=== PATIENT | female | born 1970 | race Caucasian/White ===

== ENCOUNTER 2024-11-09 08:17 | Outpatient (CLI) | payer OTHER, SELFPAY ==
--- NOTE | 2024-11-30 17:14 | P.SLEEP_ITS ---
Sleep Study - Home Unattended Date of Study: 11/09/24 Ordering Provider: LINETTE Love Interpreting Provider: Gaye Torres DO Home Sleep Study Type: Watch PAT Height: 1.63 m Weight: 83.007 kg Body Mass Index: 31.4 Neck Circumference (inches): 14.75 Sayre: 14 Reason for Sleep Study Daytime hypersomnia Sleep History The patient is a 54-year-old female that had a sleep study ordered by the pulmonary group for evaluation of sleep apnea. The patient admits to snoring loudly, excessive daytime sleepiness and trouble maintaining sleep. The patient denies interruptions and breathing while asleep. She denies choking or gasping at night. She denies having trouble breathing on her back. She does have morning headaches. She denies having a dry or sore mouth/ throat in the morning. She denies nocturnal heartburn. She denies nocturia. She denies having difficulty falling asleep. She denies having difficulty returning to sleep if she wakes up throughout the night. She denies any hypnotic or sedative use. She denies feeling anxious about sleep. She does feel tired or sleepy during the day. She does feel tired in the morning. She does have the urge to fall asleep during the day. She does feel drowsy while driving. She denies sleep paralysis, cataplexy and hypnagogic / hypnopompic hallucinations. She denies clenching or grinding her teeth. She denies kicking or jerking her legs excessively. She denies having a restless feeling in her legs. She goes to bed at 10:35 p.m. on work days and 11:30 p.m. on her days off. It takes her 15 minutes to fall asleep. She gets 5-1/2 hours of sleep on work days and 6 hours 15 minutes of sleep on her days off. Her sleep is a little more restorative on her days off. She denies taking any planned naps. She denies dream enactment behavior. She denies sleep walking. She consumes 1-2 cups of caffeinated beverage per day. She consumes 1 glass 7 alcoholic beverage 1-2 nights per week. She denies tobacco use. She does not exercise on a regular basis. [facility] Past Medical History Medical History Pituitary tumor Thyroid disorder Hyperlipidemia Surgical History Surgical History H/O hernia repair H/O hemorrhoidectomy History of cholecystectomy H/O parotidectomy April 2022 Family History Family History Daughter Asthma Depression Mother Depression Father Hypertension Other Cerebrovascular accident Social History Social History Smoking status: Never smoker Do You Feel Safe in your Home?: Yes Lack of Transportation: No Lack of Food: Never True Current Housing: I Have Housing Concerned About Future Housing: No Difficulty Paying Gas/Electric Bills: No Difficulty Paying for Meds: No Currently Unemployed: No Education: Bachelor's Degree Difficulty w/ Childcare or Family Care: No Medications Home Medications ?Medication ?Instructions ?Recorded ?Confirmed ?Type ascorbic acid (vitamin C) 500 mg 500 mg PO DAILY 05/09/24 11/14/24 History chewable tablet desmopressin 0.1 mg tablet mg PO TID 05/09/24 11/14/24 History levothyroxine 100 mcg tablet mcg PO DAILY 05/09/24 11/14/24 History multivitamin 1 tablet PO DAILY 05/09/24 11/14/24 History calcium carbonate 600 mg PO DAILY 06/19/24 11/14/24 History fluticasone propionate 50 1 spray intranasal BID PRN 06/19/24 11/14/24 History mcg/actuation nasal spray,suspension losartan 25 mg tablet See Rx Instructions .Route 10/23/24 11/14/24 Rx .COMPLEX #90 tabs atorvastatin 20 mg tablet 20 mg PO QPM #90 tabs 11/14/24 11/14/24 Rx metformin 500 mg tablet,extended 500 mg PO BID 3 months #180 tabs 11/14/24 11/14/24 Rx release 24 hr omega-3 acid ethyl esters 1 gram See Rx Instructions .Route 11/14/24 11/14/24 Rx capsule .COMPLEX #360 caps Sleep Procedure The sleep study was completed using Syn[employer] a technically adequate device with seven channels: peripheral arterial tone, actigraphy, body position, snore, respiratory movement, pulse oximetry, sleep staging, and heart rate. Prior to using the device, the patient received verbal and written instructions for its application and was provided with the help desk phone number for additional telephonic instruction with 24-hour availability of qualified personnel to answer questions. The study was scored using CMS guidelines. Sleep Architecture The total recording time is 6 hrs, 10 min. The total sleep time is 5 hrs, 48 min. Sleep latency is 17 minutes. REM latency is 70 minutes. The patient had 1 episodes of waking. Sleep architecture shows 20.2% deep sleep, 46.3% light sleep, and (as % Total Sleep Time) showed NREM (Light 46.3%; Deep 20.2%), and a 33.4% stage REM. The patient spent 100.0% of total sleep time in the supine position. Sleep efficiency was 94.05. Respiratory Analysis The overall AHI (pAHI 4%:) is 20.3. The central AHI is 0.9. The AHI was 7.2 in NREM and 45.9 in REM sleep. The AHI was 20.3 in Supine and N/A in Non-supine sleep. Percent of Alexander Muñoz respirations is 0.0. Oximetry Data The oxygen desaturation index (ADI 4%:) is 19.1. The mean saturation is 93%, and the lowest saturation is 74%. Time spent with saturation < 88% is 7.6 minutes. Snoring Profile Snoring average intensity is 45 dB. The patient snored above 45 decibels for 148.7 minutes, 42.7% of sleep time. Cardiac Profile The average pulse rate is 61 beats per minutes. The lowest pulse rate is 48 bpm. The highest pulse rate reported is 100 bpm. Atrial fibrillation was not detected. Premature beats occur <0.1 per minute. Assessment and Plan Assessment and Plan (1) HEATHER (obstructive sleep apnea): Code(s): G47.33 - Obstructive sleep apnea (adult) (pediatric) Status: Acute Assessment and Plan: The patient had an overall AHI of 20.3 with desaturation down to 74%. This is consistent with moderate sleep apnea. The patient's REM AHI was 45.9. Due to the severity of her sleep apnea being over two times greater in REM sleep as well as how low she desaturated, she is not an ideal candidate for AutoPAP. I recommend that the patient have a CPAP Titration study with the use of a hypnotic (Lunesta 2-3 mg or Ambien 5-10 mg) to ensure we obtain enough sleep data and find an optimal pressure setting. Data The data obtained during this sleep study is adequate for interpretation. Certification This sleep study has been reviewed by a board certified sleep medicine physician.
[2024-11-30 17:25] VITALS: BMI 31.4
== END 2024-11-10 15:09 | disposition home or self-care (01) ==
LOC: ANHCSM 08:18
PROVIDERS: PCP Pediatrics; Visit Provider Physician Assistant
DX: G47.33 Obstructive sleep apnea (adult) (pediatric) (principal); I10 Essential (primary) hypertension
CPT/HCPCS: 95800

== ENCOUNTER 2025-02-16 08:16 | Outpatient (CLI) | payer OTHER, SELFPAY ==
--- OUTSIDE RECORDS SUMMARY | 2025-02-16 08:28 | XMS_ITS | Clinical Summary ---
Author Organization [facility] [employer] Address [address] [place] [address] Care Team Providers Care Spooling Operator Name Role Phone Robert Downs MD Primary Care Provide r Source Comments [facility],non-owned Affiliates and Associated Physician Practices is amultiple site organization consisting of ambulatory clinics and hospital sitesin [place], [place], [place] and [place]. This disclosure is being madepursuant to the Care Everywhere program and may not contain all information available regarding this patient. Last updated 18.[facility] [employer] Allergies Active Allergy Reactions Criticality Noted Date Comments Neo Inhibitors Cough 02/08/2022 Medications * Be aware that medications may not be up to date on this document. Alwaysverify current medications with the patient. Medication Sig Dispensed Refills Start Date End Date Status Fiber Adult Gummies 2 g CHEW Take 1 capsule by mouth once daily as needed Active calcium citrate-vitamin D (CITRACAL PLUS D) 315-200 MG-UNIT tablet Take 1 (one) tablet by mouth once daily Active [place]-3 Fatty Acids (FISH OIL) 1000 MG capsule Take 1 (one) capsule by mouth once daily Active Multiple Vitamin (MULTI-DAY PO) Active Ascorbic Acid (RENE-C PO) Active desmopressin (DDAVP) 0.1 MG tablet Take 1 (one) tablet by mouth 2 times daily 60 tablet 1 02/15/2022 Active Additional Information Patient taking differently:100 mcg Oral3 TIMES DAILY, Reported on 03/02/2023 acetaminophen (TYLENOL) 325 MG tablet Take 2 (two) tablets by mouth every 6 hours as needed Active Ascorbic Acid 500 MG Take 1 tablet by mouth once daily 04/15/2021 Active Calcium-Vitamin D-Vitamin K (VIACTIV CALCIUM PLUS D) 650-12.5-40 MG-MCG-MCG CHEW Take 1 tablet by mouth once daily 02/21/2021 Active levothyroxine (Synthroid) 100 MCG tablet Take 1 (one) tablet by mouth every morning 01/08/2023 Active atorvastatin (Lipitor) 20 MG tablet Take 1 (one) tablet by mouth once daily 08/18/2022 Active metFORMIN ER 24hr (Glucophage XR) 500 MG tablet Take 1 (one) tablet by mouth once daily 30 tablet 11 05/03/2023 Active fluticasone propionate (Flonase) 50 MCG/ACT nasal spray USE 2 SPRAY(S) IN EACH NOSTRIL ONCE DAILY 12/29/2023 Active levothyroxine (Synthroid) 100 MCG tablet Take 1 (one) tablet by mouth once daily 04/28/2023 Active Active Problems Problem Noted Date Diagnosed Date Red's angina 02/04/2022 Cervical lymphadenopathy 02/02/2022 Malaise 02/02/2022 Pituitary tumor 01/28/2022 Mass of right parotid gland 11/15/2021 Acute post-operative pain Acute postoperative pulmonary insufficiency Essential hypertension Polyuria Diabetes insipidus - [employer] Deficiency Acute blood loss as cause of postoperative anemi a S/P transsphenoidal hypophysectomy Resolved Problems Problem Noted Date Diagnosed Date Resolved Date Strep pharyngitis 02/02/2022 02/24/2022 Immunizations Name Administration Dates Next Due INFLUENZA VACCINE 09/08/2013,09/23/2009,09/29/20 05 INFLUENZA VACCINE, QUADR. (F LUZONE; FLULAVAL; FLUARIX; AFLURIA QUADRIVALENT; 6MO+), 0.5 ML (IIV4) 11/09/2022,08/14/2022,10/29/2021 TDAP (7yrs+) 09/08/2013 Td (Adult), 2 Lf Tetanus Tox oid, Adsorbed, Pf 04/18/2008 Zoster Hzv Vacc Recombinant Inj Im 11/24/2022 Family History Medical History Relation Name Comments Cancer - Other Father Arthritis - Rheumatoid Sister Relation Name Status Comments Father Sister Social History Tobacco Use Types Packs/Day Years Used Date Smoking Tobacco: Never Smokeless Tobacco: Never Tobacco Cessation:Counseling Given: Not Answered Alcohol Use Standard Drinks/Week Comments Yes 0 (1 standard drink = 0.6 oz pur e alcohol) social maybe 1 a month AUDIT-C Answer Date Recorded Q1: How often do you have a drink containing alc ohol? Never 02/07/2022 Q2: How many drinks containi ng alcohol do you have on a typical day when you are drinking? 1 or 2 02/07/2022 Q3: How often do you have six or more drinks on one occasion? Never 02/07/2022 Sex and Gender Information Value Date Recorded Sex Assigned at Not on file Gender Identity Not on file Sexual Orientation Not on file Last Filed Vital Signs Vital Sign Reading Time Taken Comments Blood Pressure 115/77 03/07/2024 3:44 PM CDT Pulse 68 03/07/2024 3:44 PM CDT Temperature 37 C (98.6 F) 03/07/2024 3:44 PM CDT Respiratory Rate 18 03/02/2023 2:50 PM CDT Oxygen Saturation 94% 03/07/2024 3:44 PM CDT Inhaled Oxygen Concentration 21% 02/11/2022 1 2:00 AM CDT Weight 83.5 kg (184 lb) 03/07/2024 3:44 PM CDT Height 160 cm (5' 3 ) 03/07/2024 3:44 PM CDT Body Mass Index 32.59 03/07/2024 3:44 PM CDT Plan of Treatment Upcoming Encounters Date Type Department Care Team (Late st Contact Info) Description 03/06/2025 11:30 AM CDT Appointment [facility] [address] [place] [address] Vamsi Shepard MD [address] [place] [address] [place] [address] 03/06/2025 1:15 PM CDT Office Visit [facility] - Neurosurgery [address] [place] [address], [place] [id number] Vamsi Shepard MD [address] [place] [address] Health Maintenance Due Date Last Done Comments COLOGUARD (AGES 45-75) - COLON CA SCREENING 1968 COLON MONITORING 1968 COLONOSCOPY - COLON CA SCREENING 1968 CT COLONOGRAPHY - COLON CA SCREENING 1968 Colorectal Cancer Screening 1968 FIT - COLON CA SCREENING 1968 FLEX SIG - COLON CA SCREENING 1968 HIV SCREENING 1983 HEPATITIS C SCREENING 04/03/1986 HEPATITIS B VACCINE (1 of 3 - 19+ 3-dose series) 1987 PNEUMOCOCCAL VACCINE 50+ (1 of 1 - PCV) 2018 ZOSTER VACCINE (2 of 2) 01/19/2023 11/24/2022 PAP SMEAR 04/08/2023 04/08/2020, 04/08/2020 DTAP/TDAP/TD VACCINES (2 - Td or Tdap) 09/08/2023 09/08/2013, 04/18/2008 COVID-19 VACCINE (3 - season) 2024 01/17/2021, 12/20/2020 INFLUENZA VACCINE (#1) 2024 3, 11/09/2022, 08/14/2022, Additional history exists DEPRESSION SCREENING 11/29/2024 SCREENING FOR DIABETES 02/15/2025 2, 02/14/2022, 02/14/2022, Additional history exists MAMMOGRAM 06/29/2025 06/29/2023, 03/30, 12/04/2020, Additional history exists HIB VACCINE Aged Out No longer eligi ble based on patient's age to complete this topic HPV VACCINE Aged Out No longer eligi ble based on patient's age to complete this topic MENINGOCOCCAL (Group B) VACCINE SHARED DECISION-MAKING Aged Out No longer eligible based on patient's age to complete this topic MENINGOCOCCAL GROUPS A/C/Y/W VACCINE Aged Out No longer eligible based on patient's age to complete this topic Medical Devices Implanted Type Area Aviation Maintenance Instructor Device Identifier Shelf Expiration Date Model / Serial / Lot Graft Tissue Drgn + Bvn Clgn Mtrx 2x2in Implanted:Qty: 1 on 02/06/2022 by Vamsi Shepard MD at [facility] N/A: [employer] 11/28/2024 [id number] / / [id number] Slnt Dura Duraseal Pg Trilysine Amine 5 Implanted:Qty: 1 on 02/06/2022 by Jg Bowser MD at [facility] N/A: Cranial [employer] Brenda 05/28/2023 [id number] / / [id number] Procedures Procedure Name Priority Date/Time Associated Diagnosis Comments BASIC METABOLIC PANEL (CALCIUM TOTAL) STAT 02/15/2022 2:43 AM CDT Pituitary tumor from Last 3 Months or Most Recently Relevant to Health Maintenance Results * BASIC METABOLIC PANEL (CALCIUM TOTAL) (02/15/2022 2:43 AM CDT) BUN 10 7 - 26 mg/dL 02/15/2022 3:53 AM [facility] Creatinine 0.63 0.56 - 0.96 mg/dL 02/15/2022 3:53 AM [facility] Sodium 145 136 - 145 mmol/L 02/15/2022 3:53 AM [facility] Potassium 4.2 3.5 - 4.5 mmol/L 02/15/2022 3:53 AM [facility] Chloride 106 98 - 107 mmol/L 02/15/2022 3:53 AM [facility] CO2 27 22 - 29 mmol/L 02/15/2022 3:53 AM [facility] Glucose 91 70 - 115 mg/dL 02/15/2022 3:53 AM [facility] Calcium 9.0 8.4 - 10.2 mg/dL 02/15/2022 3:53 AM [facility] Anion Gap 16 8 - 18 02/15/2022 3:53 AM [facility] BUN/Creatinine Ratio 16 7 - 23 02/15/2022 3:53 AM [facility] Osmolality Calculated 299 270 - 300 mOsm/kg 02/15/2022 3:53 AM CDT [facility] eGFR by CKD-EPI >90 >=90 mL/min/1.7 3 m2 02/15/2022 3:53 AM CDT [facility] Blood BLOOD SPECIMEN / Unknown Lab Venipuncture / Unknown 02/15/2022 2:43 AM CDT 02/15/2022 3:27 AM CDT Vamsi Shepard MD LAB - CHEMISTRY [facility] [address] [place] [address], [facility] [phone] from Last 3 Months or Most Recently Relevant to Health Maintenance Advance Directives * Full Code (Latest Code Status on File) Date Activated Date Inactivated Comments 02/04/2022 3:25 PM 02/15/2022 4:07 PM Care Teams Spooling Operator Relationship Specialty Start Date End Date Robert Downs MD [address] [place] [address] PCP - General Pediatrics 01/22/22
--- OUTSIDE RECORDS SUMMARY | 2025-02-16 08:28 | XMS_ITS ---
Author Organization Unknown Medications Medication Instructions Effective Dates (start - stop) Status 24 HR metformin hydrochlorid e 500 MG Extended Release Oral Tablet - Compl eted desmopressin acetate 0.1 MG Oral Tablet - Completed desmopressin acetate 0.1 MG Oral Tablet - Completed levothyroxine sodium 0.1 MG Oral Tablet - Completed atorvastatin 20 MG Oral Tablet 2024-02-12 T00:00:00Z - Completed 24 HR metformin hydrochlorid e 500 MG Extended Release Oral Tablet - Compl eted desmopressin acetate 0.1 MG Oral Tablet - Completed omega-3 acid ethyl esters (U SP) 1000 MG Oral Capsule - Completed levothyroxine sodium 0.1 MG Oral Tablet - Completed losartan potassium 25 MG Ora l Tablet - Completed levothyroxine sodium 0.1 MG Oral Tablet - Completed 24 HR metformin hydrochlorid e 500 MG Extended Release Oral Tablet - Compl eted 24 HR metformin hydrochlorid e 500 MG Extended Release Oral Tablet - Compl eted fluticasone propionate 0.05 MG/ACTUAT Metered Dose Nasal [place] - Completed cefdinir 300 MG Oral Capsule [id number] 0:00:00Z - Completed 24 HR metformin hydrochlorid e 500 MG Extended Release Oral Tablet - Compl eted atorvastatin 20 MG Oral Tablet 2024-02-12 T00:00:00Z - Completed desmopressin acetate 0.1 MG Oral Tablet - Completed desmopressin acetate 0.1 MG Oral Tablet - Completed desmopressin acetate 0.1 MG Oral Tablet - Completed levothyroxine sodium 0.1 MG Oral Tablet - Completed atorvastatin 20 MG Oral Tablet 2023-08-15 T00:00:00Z - Completed atorvastatin 20 MG Oral Tablet 2024-05-10 T00:00:00Z - Completed desmopressin acetate 0.1 MG Oral Tablet - Completed Patient Care team information Name Category Status Period Participants - - Proposed period not known -
--- OUTSIDE RECORDS SUMMARY | 2025-02-16 08:28 | XMS_ITS | Clinical Summary ---
Author Organization [facility] Address [address] [place] [address] Care Team Providers Care Abrasive Sawyer Name Role Phone Robert Downs MD Primary Care Provide r Allergies Active Allergy Reactions Criticality Noted Date Comments Neo Inhibitors Cough Low 02/08/2022 Medications DAILY MULTIPLE VITAMINS Tab Take by mouth daily. 8 Active atorvastatin (LIPITOR) 20 MG tabletIndications: Mixed hyperlipidemia Take 1 tablet by mouth once daily 90 tablet 3 3 Active fluticasone propionate (FLONASE) 50 MCG/ACT nasal sprayIndications:A cute non-recurrent maxillary sinusitis 2 sprays by Nasal route daily. 16 g 3 4 Active levothyroxine (SYNTHROID) 100 MCG tabletIndications: Acquired hypothyroidism take 1 tablet by mouth once daily in the morning 90 tablet 3 4 Active vitamin C (SM CHEWABLE VITAMIN C) 500 MG Chew Tab chewable tablet Chew 1 tablet (500 mg total) by mouth daily. Active calcium carb-cholecalcifer ol (CALTRATE 600+D3) 600-20 MG-MCG tablet Take 1 tablet by mouth daily. 4 Active losartan (COZAAR) 25 MG tablet Take 1 tablet (25 mg total) by mouth daily. 4 Active omega-3 acid (LOVAZA) 1 GM capsule Take 1 capsule (1 g total) by mouth 2 (two) times daily. Active metFORMIN ER (GLUCOPHAGE-XR) 500 MG 24 hr tabletIndications: Prediabetes Take 1 tablet (500 mg total) by mouth 2 (two) times a day. 180 tablet 3 4 Active desmopressin (DDAVP) 0.1 MG tabletIndications: Pituitary macroadenoma ([facility]) take 1 tablet by mouth three times daily 270 tablet 3 4 Active cefdinir (OMNICEF) 300 MG Cap capsuleIndications :Acute non-recurrent maxillary sinusitis,Acute bronchitis, unspecified organism Take 1 capsule (300 mg total) by mouth 2 (two) times daily. 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[facility]) 022 Mass of right parotid gland 11/15/2021 Neck pain 11/15/2021 Colon polyps 10/04/2020 Prediabetes 06/14/2019 Arthralgia of both hands 06/14/2019 Acquired hypothyroidism 06/14/2019 Equinus deformity of both feet 03/02/2018 Plantar fasciitis 02/24/2018 Mixed hyperlipidemia 02/16/2018 Obstructive sleep apnea (adult) (pediatric) 01/28 Resolved Problems Problem Noted Date Diagnosed Date Resolved Date Acute post-operative pain 06/09/2023 Acute postoperative pulmonary insufficiency 06/09/2023 09/18/2024 Diabetes mellitus ([facility]) 06/09/2023 09/27/2024 Polyuria 06/09/2023 09/27/2024 Malaise 02/02/2022 09/27/2024 Pituitary tumor 01/28/2022 09/27/2024 Encounters Date Type Department Care Team Description 01/01/2025 Scan HEALTH INFO SRVCS Scanned, Doc [facility] 11/20/2024 Scan MG HEALTH INFO SRVCS Scanned, Doc Med Group from Last 3 Months Immunizations Name Administration Dates Next Due Fluzone 6 Months+ Quad (0.5 mL Prefilled Syringe) 09/16/2023,10/29/2021 Influenza (Generic) 09/04/2024, 3,09/23/2009,2004 Influenza Adult (Generic) 11/09/2022,,09/08/2013,2008,09/29/2005 MODERNA COVID-19 (12+) MRNA, LNP-S, PF, 100 MCG/ 0.5 ML DOSE 01/17/2021,12/20/2020 Pneumococcal (Prevnar 20) 09/18/2024 Shingrix 04/15/2023,11/24/2022 Td 04/18/2008 Td (TDVAX) 04/18/2008 Tdap (Adacel) 09/16/2023 Tdap (Generic) 09/08/2013,09/08/2013 Family History Medical History Relation Comments Cancer Father SKIN Hypertension Father skin cancer Father Breast Cancer Maternal Aunt 1 Cancer Maternal Aunt 2 BREAST None Maternal Aunt 2 Vision loss Maternal Aunt 2 Glaucoma Stroke Maternal Grandfather Hyperlipidemia Mother Hypertension Mother Vision loss Mother macular degenera tion Stroke Paternal Grandmother Cancer Paternal Uncle Colon Arthritis Sister Rheumatoid Arthr itis Hyperlipidemia Sister Hypertension Sister Rheumatoid Arthritis Sister Relation Status Comments Father Alive Maternal Aunt 1 Maternal Aunt 2 Maternal Grandfather Mother Paternal Grandmother Paternal Uncle Sister Social History Tobacco Use Types Packs/Day Years Used Date Smoking Tobacco: Never Passive Smoke Exposure: Never Smokeless Tobacco: Never Alcohol Use Standard Drinks/Week Comments Yes 1.7 (1 standard drink = 0.6 oz p ure alcohol) Occ AUDIT-C Answer Date Recorded Frequency of Alcohol Consumption 2-4 times a wed06/09/2019 Average Number of Drinks Not on file 019 Frequency of Binge Drinking Not on file 05/29 PHQ-2 Answer Date Recorded Patient Health Questionnaire-2 Score 0 09/18/2024 Comments No Sex and Gender Information Value Date Recorded Sex Assigned at Not on file Legal Sex Female 7:13 PM CDT Gender Identity Female 12/05/2021 1:41 PM NURSE CASE MANAGER Sexual Orientation Straight 12/05/2021 1: 41 PM NURSE CASE MANAGER Last Filed Vital Signs Vital Sign Reading Time Taken Comments Blood Pressure 116/66 09/18/2024 3:44 PM CDT Pulse 74 09/18/2024 3:44 PM CDT Temperature 36.2 C (97.2 F) 09/18/2024 3:44 PM CDT Respiratory Rate 18 09/18/2024 3:44 PM CDT Oxygen Saturation 96% 09/18/2024 3:44 PM CDT Inhaled Oxygen Concentration - - Weight 81.8 kg (180 lb 6.4 oz) 09/18/2024 3:44 P M CDT Height 160 cm (5' 3 ) 09/12/2024 9:45 AM CDT Body Mass Index 31.96 09/12/2024 9:45 AM CDT Plan of Treatment Health Maintenance Due Date Last Done Comments Hepatitis C 1986 Hepatitis B Vaccines (1 of 3 - 19+ 3-dose series) 1987 Cervical Cancer Screening Pap Smear (Age 30 to 64) Every 3 Years 04/08/2023 04/08/2020 COVID-19 Vaccine ( season) 2024 01/17/2021, 12/20/2020 PHQ-2 (Physician [place]) 11/29/2024 09/18/2024 Cervical Cancer Screening Pap with HPV Testing (Age 30 to 64) Every 5 Years 04/08/2025 04/08/2020, 01/28/2018, 01/28/2018 Cervical Cancer Screening with HPV 04/08/2025 Annual Physical 09/18/2025 09/18/2024, 08/29, 09/26/2020, Additional history exists Mammogram Screening 08/01/2026 08/01/2024, 06/29/2023, 04/21/2022, Additional history exists Colorectal Cancer Screening Colonoscopy (10 Years) 10/27/2031 10/27/2021, 07/25/2018 DTaP, Tdap and Td Vaccines (4 - Td or Tdap) 09/16/2033 09/16/2023, 09/08/2013, 09/08/2013, Additional history exists Zoster Vaccines Completed 04/15/2023, 11/24/2022 Influenza Adult Completed 09/04/2024, 08/29, 11/09/2022, Additional history exists Pneumococcal Vaccine: Pediatrics (0 to 5 Years) and At-Risk Patients (6 to 64 Years) Aged Out 09/18/2024 No longer eligible based on patient's age to complete this topic Meningococcal B Vaccine Aged Out No l onger eligible based on patient's age to complete this topic Meningococcal Vaccine Aged Out No dee alyse eligible based on patient's age to complete this topic RSV Immunizations Under 20 Months Aged Out No longer eligible based on patient's age to complete this topic Procedures Procedure Name Priority Date/Time Associated Diagnosis Comments MG SCREENING W JANETH ANU DIGI Routine 08/01/2024 4:07 PM CDT Encounter for screening mammogram for malignant neoplasm of breast Encounter for screening for malignant neoplasm of cervix Screening for HPV (human papillomavirus) HPV in female COLONOSCOPY GENERIC (SCAN ORDER) 10/27/2021 HPV MRNA E6/E7 Routine 04/08/2020 11:15 AM CDT CYTOPATH CERV/VAG THIN LAYER Routine 04/08/2020 12:00 AM CDT from Last 3 Months or Most Recently Relevant to Health Maintenance Results * MG SCREENING W JANETH ANU DIGI (08/01/2024 4:07 PM CDT) Anatomical Region Laterality Modality Breast Bilateral Mammography 08/01/2024 4:15 PM CDT Impressions 08/01/2024 4:18 PM CDT IMPRESSION: No significant interval change. No mammographic evidence of malignancy. RECOMMENDATION: Routine ScreeningBilateral OVERALL IMAGING ASSESSMENT: ACR BI-RADS 2 - BENIGN FINDING(S). Ordered By: GODWIN MACK Interpreted By: Joaquin Vasquez, 08/01/2024 4:15 PM Narrative 08/01/2024 4:18 PM CDT [address] [address] EXAMINATION: MG SCREENING W JANETH ANU DIGI INDICATIONS: Screening TECHNIQUE: Digital full field CC and MLO screening mammography bilaterally to include 3-D Tomosynthesis technique. This study was read with the assistance of a computer-aided detection system. HISTORY: No reported breast complaint. Family history of breast cancer. No documented personal or first degree family history of breast cancer. No documented prior breast procedure. COMPARISON: Multiple prior examinations available for comparison dating back to 07/05/2008, the most recent of 06/29/2023, 03/22/2022, and 12/04/2020. TISSUE DENSITY: There are scattered areas of fibroglandular density. FINDINGS: Few typically benign round calcifications. No suspicious microcalcification or mass. No developing asymmetry or architectural distortion. No axillary adenopathy. Godwin Mack MD MAMMO Final Resul t * COLONOSCOPY GENERIC (10/27/2021) 10/27/2021 Narrative 10/27/2021 Ordered by an unspecified provider. Documents Scanned SCANNING Final Result * (ABNORMAL) HPV MRNA E6/E7 (04/08/2020 11:15 AM CDT) HPV MRNA E6/E7 DETECTED (A) NOT DETECTED 04/12/2020 2:51 PM CDT [facility] [place] Comment: This test was performed using the APTIMA(R) HPV Assay ([employer] This assay detects E6/E7 viral messenger RNA (mRNA) from 14 high-risk HPV types (16,18,31,33,35,39,45,51, 52,56,58,59,66,68). For additional information please refer to: http://education.[employer].Maozhao/faq/GGE222w7 (This link is being provided for informational/ educational purposes only.) The analytical performance characteristics of this assay have been determined by [employer] [place], [place]. The modifications have not been cleared or approved by the FDA. This assay has been validated pursuant to the CLIA regulations and is used for clinical purposes. Test Performed by [facility], Aldera Gu[facility] [place], [address] [place] [address] Manan Hazel M.D., Ph.D., Director of Laboratories , CLIA [id number] 04/08/2020 11:1 5 AM CDT us Nikki Steen NP PATHOLOGY/CYTOLOGY ORDERABL ES Final Result [facility] [address] [place] [address], * Cytopath Cerv/Vag Thin Layer (04/08/2020 12:00 AM CDT) Pathologist [facility] [place] [address] [phone] Department of Pathology Pathology Report Gynecological Cytology Report Patient Name: CHARISMA CURTIS : 1970 (Age: 50) Location: [facility] Gender: F Collected Date: 04/08/2020 Med Rec #: [id number] Date Received: 04/10/2020 Date Reported: 04/15/2020 Provider: NIKKI STEEN NP Other Case Numbers [id number] Final Cytologic Diagnosis ABNORMAL RESULT Satisfactory for evaluation. Endocervical component not identified. ATYPICAL SQUAMOUS CELLS - UNDETERMINED SIGNIFICANCE (ASC-US) High-risk HPV mRNA E6/E7 by Aptima assay (performed at [email or web address]) is reported as DETECTED (see separate report for details). This case was signed out at [facility], [address] [place] [id number]. Electronically Signed Out MELANIE Rascon Source of Specimen(s) Cervical/Endocer vical - Thin Prep Clinical History Screening, last Pap 02/02/2019 ASCUS, HPV positive. Z12.4 Date of Last Menstrual Period: 02/12/2020 Billing Fee Code(s): A: 39010 [facility] 04/08/2020 04/10/2020 7:3 2 AM CDT Comment:CERVICAL/ENDOCERVICA L - THIN PREP Nikki Steen DEPUTY BAILIFF PATHOLOGY/CYTOLOGY ORDERABL ES Final Result [facility] [address] [place] [address], from Last 3 Months or Most Recently Relevant to Health Maintenance Insurance [employer] [facility] Care Teams Abrasive Sawyer Relationship Specialty [place] [address] [place] [id number] PCP - General INTERNAL MEDICINE 05/29/19
--- OUTSIDE RECORDS SUMMARY | 2025-02-16 08:29 | XMS_ITS | Referral Summary ---
Author Organization [facility] [address] Address [address] [place] [address] Care Team Providers Care Inside Sales Agent Name Role Phone Asim Downs NP Primary Care Provider +1- [phone] Allergies Active Allergy Reactions Criticality Noted Date Comments Neo Inhibitors Cough Low 02/08/2022 Medications atorvastatin (LIPITOR) 20 mg tabletIndicatio ns:hyperlipidem ia Take 1 tablet (20 mg total) by mouth nightly 1 Active levothyroxine (SYNTHROID) 25 mcg tabletIndicatio ns:hypothyroidi sm Take 2 tablets (50 mcg total) by mouth bag patcher before breakfast 1 Active multivitamin with iron tabletIndicatio ns:Vitamin Deficiency Prevention Take 1 tablet by mouth daily after lunch 8 Active acetaminophen (TYLENOL) 500 mg tablet Take 2 tablets (1,000 mg total) by mouth as needed for pain Active ascorbic acid (VITAMIN C) 500 mg tablet,chewable Indications:sup plement Take 1 tablet/chew tab (500 mg total) by mouth daily after lunch 1 Active calcium-vitamin D3-vitamin K 650 mg-12.5 mcg-40 mcg tablet,chewable Indications:sup plement Take 1 tablet by mouth daily after lunch 1 Active desmopressin (DDAVP) 0.1 mg tabletIndicatio ns:diabetes insipidus Take 1 tablet (100 mcg total) by mouth 3 (three) times a day 2 Active docosahexaenoic acid-epa 120-180 mg capsuleIndicati ons:supplement Take 1 capsule by mouth daily after lunch Active fluticasone propionate (FLONASE) 50 mcg/actuation nasal spray Administer 2 sprays into affected nostril(s) as needed for allergies 2 Active predniSONE (DELTASONE) 5 mg tabletIndicatio ns:pituitary tumor Take 0.5 tablets (2.5 mg) by mouth every morning 0.5 tablets Active oxyCODONE (ROXICODONE) 5 mg immediate release tabletIndicatio ns:Pain Take 1 tablet (5 mg total) by mouth every 4 (four) hours as needed for pain (Pain not relieved by tylenol/ibuprof en) 15 tablet 2 Active Euthyrox 50 mcg tablet 2 Active metFORMIN XR (GLUCOPHAGE XR) 500 mg 24 hr tablet Take 1 tablet (500 mg total) by mouth daily 30 tablet 11 3 Active levothyroxine (SYNTHROID) 100 mcg tablet Take 1 tablet (100 mcg total) by mouth daily 3 Active Active Problems Problem Noted Date Diagnosed Date Acute blood loss as cause of postoperative anemi a 06/09/2023 Acute post-operative pain 06/09/2023 Acute postoperative pulmonary insufficiency 05/29 Essential hypertension 06/09/2023 S/P transsphenoidal hypophysectomy 06/09/2023 Polyuria 06/09/2023 Diabetes 06/09/2023 Diabetes insipidus 04/19/2023 Parotid mass 05/25/2022 Red's angina 02/04/2022 Cervical lymphadenopathy 02/02/2022 Malaise 02/02/2022 Pituitary tumor 01/28/2022 Pituitary macroadenoma 12/04/2021 Mass of right parotid gland 11/15/2021 Overview (06/04/2022): DIAGNOSIS: Right parotid pleomorphic adenoma PROCEDURE PERFORMED: (Rafael 05/25/22) Right parotidectomy Neck pain 11/15/2021 Colon polyps 10/04/2020 Acquired hypothyroidism 06/14/2019 Arthralgia of both hands 06/14/2019 Prediabetes 06/14/2019 Equinus deformity of both feet 03/02/2018 Plantar fasciitis 02/24/2018 Obstructive sleep apnea (adult) (pediatric) 01/28 Mixed hyperlipidemia 02/16/2018 Immunizations Immunization Administration Dates Next Due Influenza, Quadrivalent, Spl it, Preservative Free, Intramuscular 10/29/2021 Influenza, Unspecified 09/08/2013,09/23/2009,11/2004 Td, adsorbed 04/18/2008 Tdap 09/08/2013 Social History Tobacco Use Types Packs/Day Years Used Date Smoking Tobacco: Former Cigarettes 0.1 0.5 0 11/1987 - 05/1988 Smokeless Tobacco: Never Tobacco Cessation:Counseling Given: Not Answered Comments: couple cigarettes here and there, 6 months in college only AUDIT-C Answer Date Recorded Q1: How often do you have a drink containing alc ohol? 2-4 times a month 05/25/2022 Q2: How many drinks containi ng alcohol do you have on a typical day when you are drinking? 3 or 4 05/25/2022 Q3: How often do you have si x or more drinks on one occasion? 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 Gender Identity Female 11/10/2021 9:57 PM CARPET SEWING MACHINE OPERATOR Sexual Orientation Straight 11/10/2021 9: 57 PM CARPET SEWING MACHINE OPERATOR Last Filed Vital Signs Vital Sign Reading Time Taken Comments Blood Pressure 128/64 05/26/2022 8:31 AM CDT Pulse 68 05/26/2022 8:31 AM CDT Temperature 36.5 C (97.7 F) 05/26/2022 8:31 AM CDT Respiratory Rate 14 05/26/2022 8:31 AM CDT Oxygen Saturation 96% 05/26/2022 3:15 AM CDT Inhaled Oxygen Concentration - - Weight 81.3 kg (179 lb 3.2 oz) 06/09/2023 1:27 P M CDT Height 160 cm (5' 3 ) 06/09/2023 1:27 PM CDT Body Mass Index 31.74 06/09/2023 1:27 PM CDT Plan of Treatment Not on file Insurance [phone] (Work) [address] [place] [address] [facility] [id number] [facility] [id number] Advance Directives For more information, please contact: [phone] * Full Code (Latest Code Status on File) Date Activated Date Inactivated Comments 05/25/2022 6:42 PM 05/26/2022 5:54 PM Care Teams Inside Sales Agent Relationship Specialty Start Date End Date Asim Downs NP PCP - General Family Medicine 11/10/21
--- OUTSIDE RECORDS SUMMARY | 2025-02-16 08:29 | XMS_ITS | Clinical Summary ---
Author Organization [facility] [address] Address [address] [place] [address] Care Team Providers Care Government Relations Analyst Name Role Phone Asim Downs NP Primary Care Provider +1- [phone] Allergies Active Allergy Reactions Criticality Noted Date Comments Neo Inhibitors Cough Low 02/08/2022 Medications atorvastatin (LIPITOR) 20 mg tabletIndicatio ns:hyperlipidem ia Take 1 tablet (20 mg total) by mouth nightly 1 Active levothyroxine (SYNTHROID) 25 mcg tabletIndicatio ns:hypothyroidi sm Take 2 tablets (50 mcg total) by mouth business law professor before breakfast 1 Active multivitamin with iron [...] Unspecified 09/08/2013,09/23/2009,11/2004 Td, adsorbed 04/18/2008 Tdap 09/08/2013 Surgical History Surgery Date Site/Laterality Comments HERNIA REPAIR 11/29/1979 - 11/28/1980 CHOLECYSTECTOMY 11/29/1993 - 11/28/1994 LASIK 11/29/2004 - 11/28/2005 Bilateral PITUITARY SURGERY 02/06/2022 transsphenoidal resection pituitary tumor COLONOSCOPY 2020 Medical History Medical History Date Comments COPD (chronic obstructive pulmonary disease) (HC C) Hypertension Neck mass Snoring Sleep apnea No CPAP Diabetes (HCC) Family History Medical History Relation Name Comments Cancer Mother's Sister Aunt Chris Cancer Other Rheum arthritis Sister Naye Relation Name Status Comments Mother's Sister Aunt Chris Other Sister Naye Social History Tobacco Use Types Packs/Day Years [...] on file Legal Sex Female 8:39 AM PLATE STRAIGHTENER Gender Identity Female 11/10/2021 9:57 PM PLATE STRAIGHTENER Sexual Orientation Straight 11/10/2021 9: 57 PM PLATE STRAIGHTENER Obstetrics History Last Filed Vital Signs Vital Sign Reading [...] 06/09/2023 1:27 PM CDT Plan of Treatment Health Maintenance Due Date Last Done Comments Albumin Creatinine Ratio, Urine 1970 Breast Cancer Screening-Mammogram 1968 Cervical Cancer Screening 1968 Colon Cancer Screening-Colonoscopy 1968 Depression Screening 1968 Hemoglobin A1C 1968 Hepatitis C Screening 1968 eGFR 1970 Dilated Eye Exam 1968 Foot Exam 1968 Hepatitis B Screening 1986 Regular Well Visit/Exam 18-64 1986 Pneumococcal vaccine <65 (1 of 2 - PCV) 1987 Zoster Vaccine (2 of 2) 01/19/2023 11/24/2022 DTaP/Tdap/Td Vaccine (2 - Td or Tdap) 09/08/2023 09/08/2013, 04/18/2008 Lipid Panel 05/01/2024 05/01/2023 Covid-19 Vaccine (3 - 2023-2 5 season) 2024 01/17/2021, 12/20/2020 Influenza Vaccine (#1) 2024 , 11/09/2022, 08/14/2022, Additional history exists [place] [address] [facility] [id number] [facility] [id number] Advance Directives For more information, please contact: [phone] * Full Code (Latest Code Status on File) Date Activated Date Inactivated Comments 05/25/2022 6:42 PM 05/26/2022 5:54 PM Care Teams Government Relations Analyst Relationship Specialty Start Date End Date Asim Downs NP PCP - General Family Medicine 11/10/21
[2025-03-19 08:21] VITALS: BMI 32.8
--- NOTE | 2025-03-19 08:21 | WPDSLEEPSTUD ---
Sleep Study Date of Study: 02/16/25 Ordering Provider: Shabbir Martinez APRN Interpreting Physician: Gaye Torres DO Sleep Study Type: CPAP Titration Height: 1.6 m Weight: 83.915 kg Body Mass Index: 32.8 Neck Circumference (inches): 15 [place]: 15 Reason for Sleep Study Daytime hypersomnia Sleep History The patient is a 54-year-old female that had a sleep study ordered by the pulmonary group for evaluation of sleep apnea. The patient admits to snoring loudly, excessive daytime sleepiness and trouble maintaining sleep. The patient denies interruptions and breathing while asleep. She denies choking or gasping at night. She denies having trouble breathing on her back. She does have morning headaches. She denies having a dry or sore mouth/ throat in the morning. She denies nocturnal heartburn. She denies nocturia. She denies having difficulty falling asleep. She denies having difficulty returning to sleep if she wakes up throughout the night. She denies any hypnotic or sedative use. She denies feeling anxious about sleep. She does feel tired or sleepy during the day. She does feel tired in the morning. She does have the urge to fall asleep during the day. She does feel drowsy while driving. She denies sleep paralysis, cataplexy and hypnagogic / hypnopompic hallucinations. She denies clenching or grinding her teeth. She denies kicking or jerking her legs excessively. She denies having a restless feeling in her legs. She goes to bed at 10:35 p.m. on work days and 11:30 p.m. on her days off. It takes her 15 minutes to fall asleep. She gets 5-1/2 hours of sleep on work days and 6 hours 15 minutes of sleep on her days off. Her sleep is a little more restorative on her days off. She denies taking any planned naps. She denies dream enactment behavior. She denies sleep walking. She consumes 1-2 cups of caffeinated beverage per day. She consumes 1 glass 7 alcoholic beverage 1-2 nights per week. She denies tobacco use. She does not exercise on a regular basis. [facility] Past Medical History Medical History Pituitary tumor Thyroid disorder Hyperlipidemia Surgical History Surgical History H/O hernia repair H/O hemorrhoidectomy History of cholecystectomy H/O parotidectomy April 2022 Family History Family History Daughter Asthma Depression Mother Depression Father Hypertension Other Cerebrovascular accident Social History Social History Smoking status: Never smoker Do You Feel Safe in your Home?: Yes Lack of Transportation: No Lack of Food: Never True Current Housing: I Have Housing Concerned About Future Housing: No Difficulty Paying Gas/Electric Bills: No Difficulty Paying for Meds: No Currently Unemployed: No Education: Bachelor's Degree Difficulty w/ Childcare or Family Care: No Medications Home Medications ?Medication ?Instructions ?Recorded ?Confirmed ?Type ascorbic acid (vitamin C) 500 mg 500 mg PO DAILY 05/09/24 01/01/25 History chewable tablet desmopressin 0.1 mg tablet mg PO TID 05/09/24 01/01/25 History levothyroxine 100 mcg tablet mcg PO DAILY 05/09/24 01/01/25 History multivitamin 1 tablet PO DAILY 05/09/24 01/01/25 History calcium carbonate 600 mg PO DAILY 06/19/24 01/01/25 History fluticasone propionate 50 1 spray intranasal BID PRN 06/19/24 01/01/25 History mcg/actuation nasal spray,suspension losartan 25 mg tablet See Rx Instructions .Route 10/23/24 01/01/25 Rx .COMPLEX #90 tabs atorvastatin 20 mg tablet 20 mg PO QPM #90 tabs 11/14/24 01/01/25 Rx metformin 500 mg tablet,extended 500 mg PO BID 3 months #180 tabs 11/14/24 01/01/25 Rx release 24 hr omega-3 acid ethyl esters 1 gram See Rx Instructions .Route 11/14/24 01/01/25 Rx capsule .COMPLEX #360 caps eszopiclone 3 mg tablet 3 mg PO ONCE #1 tablet 01/01/25 01/01/25 Rx Sleep Procedure A full night CPAP Titration using the [employer] multi-channel system recorded the standard physiologic parameters including EEG, EOG, submentalis EMG, anterior tibialis EMG, EKG, body position, nasal and oral airflow using nasal pressure sensor and thermistor.? Respiratory parameters of chest and abdominal movements were recorded with Respiratory Inductance Plethysmography belts. Oxygen saturation was recorded by pulse oximetry. Video monitoring was also performed. Sleep stages, periodic limb movements, and EEG arousals were scored in 30 second epochs according to the criteria of the AASM Scoring Manual. The Apnea-Hypopnea Index was calculated using [facility] guidelines for definition of hypopnea with 4% O2 desaturations while scoring respiratory events. Sleep Architecture The total recording time was 526.4 minutes.? The total sleep time was 478.0 minutes. Sleep latency was 3.2 minutes. REM latency was 90.5 minutes. Sleep efficiency was 90.8%. The patient had 30 awakenings for an awakening index of 3.8. Wake after Sleep Onset time was 45.0 minutes. The patient spent 32.5 minutes, 6.8% of total sleep time in Stage N1. The patient spent 270.5 minutes, 56.6% in Stage N2. The patient spent 70.5 minutes, 14.7% in Stage N3. The patient spent 104.5 minutes, 21.9% in Stage REM. Respiratory Analysis The patient had 4 obstructive apneas for an overall Apnea Hypopnea Index of 0.5 events per hour. The REM Apnea Hypopnea Index was 1.1. The NREM Apnea Hypopnea Index was 0.3. The patient had a Central Apnea Hypopnea Index of 0. There was no evidence of Alexander-Muñoz Respirations. The patient was started on CPAP 5 cm H2O and titrated to CPAP 8 cm H2O due to obstructive apneas and hypopneas. The patient was able to fall asleep starting on CPAP 5 cm H2O. The patient was able to achieve REM sleep starting on CPAP 6 cm H2O. The patient was able to achieve a residual AHI less than 5 with both NREM and REM sleep in the supine position on the final two pressure settings. On CPAP 6 cm H2O, the patient spent 252 minutes in NREM and 85 minutes in REM with 1 obstructive apnea and 5 hypopneas, resulting in an AHI of 1.1. On CPAP 8 cm H2O, the patient spent 79 minutes in NREM and 19.5 minutes in REM with 3 obstructive apneas, resulting in an AHI of 1.8. The patient had a sleep efficiency of 95.1% on 6 cm H2O and 88.3% on 8 cm H2O. Arousals There were 78 total arousals for an arousal index of 9.8. There were 59 spontaneous arousals for an index of 7.4. ?There were 3 arousals due to respiratory events for an index of 0.4. There were 0 arousals due to periodic limb movements for an index of 0.? There were 14 arousals due to isolated limb movements for an index of 1.8. Periodic Limb Movements The patient had 24 isolated limb movements with an index of 3.0. The patient had 0 periodic limb movements with index of 0. Patient had a total of 24 limb movements with a total limb movement index of 3.0. Oximetry Data The patient had an average oxygen saturation of 94.1% in sleep with a minimum oxygen saturation of 91.0% and a maximum oxygen saturation of 98.0%. The patient had 2 oxygen desaturations that were 4% or greater resulting in an Oxygen Desaturation Index of 0.3.? The patient spent 0 minutes of total sleep time with an oxygen saturation below 88%. Snoring Profile Mild snoring was present intermittently throughout the study. Cardiac Profile The EKG showed normal sinus rhythm. No arrhythmias or premature beats were seen. The patient had an average pulse rate of 57.8 bpm with a minimum pulse rate of 45.0 bpm and a maximum pulse rate of 89.0 bpm. ? EEG Profile No signs of seizure activity seen. Assessment and Plan Assessment and Plan (1) HEATHER (obstructive sleep apnea): Code(s): G47.33 - Obstructive sleep apnea (adult) (pediatric) Status: Acute Assessment and Plan: The patient was started on CPAP 5 cm H2O and titrated to CPAP 8 cm H2O due to obstructive apneas and hypopneas. The patient's sleep apnea resolved on multiple pressure settings. I recommend that the patient be prescribed CPAP 6 cm H2O, size small Resmed N30 nasal mask, CPAP filters/tubing and heated humidity. This should be used with all episodes of sleep.? Compliance should be reviewed within 31-90 days of starting therapy for usage greater than 4 hours per night greater than 70% of the nights. The patient should be asked about symptoms such as?excessive daytime sleepiness, quality of sleep, decreased nocturia, increased?mental functioning such as memory, mood, and concentration. Data The data obtained during this sleep study is adequate for interpretation. Certification This sleep study has been reviewed by a board certified sleep medicine physician.
== END 2025-02-17 07:22 | disposition home or self-care (01) ==
LOC: ANHCSM 08:17
PROVIDERS: PCP Pediatrics; Visit Provider Nurse Practitioner Family
DX: G47.33 Obstructive sleep apnea (adult) (pediatric) (principal)
CPT/HCPCS: 95811